=== PATIENT | male | born 1995 | race Caucasian/White ===

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

== ENCOUNTER 2017-07-22 06:13 | Emergency (ER) | payer OTHER ==
[~2017-07-22] VITALS: Ht 175.3 cm; Wt 98.0 kg
[2017-07-22 06:22] VITALS: Ht 175.3 cm; Wt 98.0 kg
[2017-07-22 07:00] LABS: CALCIUM 8.8 mg/dL (8.5-10.1); CARBON DIOXIDE 27.5 mmol/L (21-32); CHLORIDE SERUM 106 mmol/L (98-107); CREATININE SERUM 0.8 mg/dL (0.7-1.3); GFR1 > 60 mL/min; GLUCOSE SERUM 93 mg/dL (74-106); POTASSIUM SERUM 3.7 mmol/L (3.5-5.1); SODIUM SERUM 141 mmol/L (136-145)
[2017-07-22 07:04] LABS: ALBUMIN 4.1 g/dL (3.4-5.0); ALKALINE PHOSPHATASE 81 U/L (46-116); ALT/SGPT 46 U/L (16-63); AST/SGOT 17 U/L (15-37); BILIRUBIN TOTAL 0.7 mg/dL (0.20-1.00); LIPASE 130 IU/L (73-393); TRIGLYCERIDES 51 mg/dL (<150)
[2017-07-22 07:06] LABS: CHOLESTEROL 106 mg/dL (<200); CHOLESTEROL/HDL RATIO 3.3; HDL CHOLESTEROL 32 mg/dL (40-60)
[2017-07-22 07:13] LABS: BASOPHIL % 0.7 % (0-2); PLATELET COUNT 243 x10^3mcL (130-400)
[2017-07-22 07:14] LABS: FREE T4 0.98 ng/dL (0.76-1.46); FREE THYROXINE INDEX 2.4 ug/dL (1.4-4.5); T4(THYROXINE) 6.8 ug/dL (4.7-13.3)
[2017-07-22 07:18] LABS: T3 TOTAL 1.15 ng/mL
[2017-07-22] MEDS ORDERED: ACCUPRIL40 MG (08:13)
[2017-07-22 08:34] VITALS: BP 125/75
[2017-07-22 09:04] LABS: AMPHETAMINE QUAL UR NONE DETECTED (NEG <=1000)
== END 2017-07-22 08:35 | disposition home or self-care (01) ==
LOC: ED 06:13
PROVIDERS: Specialist
DX: F43.0 Acute stress reaction (principal); R06.02 Shortness of breath; R05 Cough
CPT/HCPCS: 83880; 84439; J2060; J7030; Q0092; Q9967

== ENCOUNTER 2017-07-30 21:27 | Emergency (ER) | payer OTHER ==
[~2017-07-30] VITALS: Ht 172.7 cm; Wt 93.9 kg
[~2017-07-30 21:27] MED LIST: ACCUPRIL40 MG
[2017-07-30 21:31] VITALS: BP 131/74; Ht 172.7 cm; Wt 93.9 kg
== END 2017-07-30 23:58 | disposition home or self-care (01) ==
LOC: ED 21:27
DX: J06.9 Acute upper respiratory infection, unspecified (principal)

== ENCOUNTER 2018-03-16 05:10 | Emergency (ER) | payer OTHER ==
[~2018-03-16] VITALS: Ht 175.3 cm; Wt 98.4 kg
[2018-03-16 05:16] VITALS: Ht 175.3 cm; Wt 98.4 kg
[2018-03-16 06:56] LABS: PLATELET COUNT 273 x10^3mcL (130-400)
[2018-03-16 07:11] LABS: CALCIUM 8.8 mg/dL (8.5-10.1); CARBON DIOXIDE 27.5 mmol/L (21-32); CHLORIDE SERUM 105 mmol/L (98-107); CREATININE SERUM 0.9 mg/dL (0.7-1.3); GFR1 > 60 mL/min; GLUCOSE SERUM 95 mg/dL (74-106); POTASSIUM SERUM 3.8 mmol/L (3.5-5.1); SODIUM SERUM 141 mmol/L (136-145)
[2018-03-16 07:15] LABS: ALKALINE PHOSPHATASE 79 U/L (46-116); ALT/SGPT 40 U/L (16-63); AST/SGOT 14 U/L (15-37); BILIRUBIN TOTAL 0.62 mg/dL (0.20-1.00); LIPASE 124 IU/L (73-393); TOTAL PROTEIN, SERUM 7.4 g/dL (6.4-8.2)
[2018-03-16 09:33] VITALS: BP 115/62
== END 2018-03-16 09:33 | disposition home or self-care (01) ==
LOC: ED 05:10
PROVIDERS: Emergency Medicine
DX: R10.13 Epigastric pain (principal); R07.89 Other chest pain; R51 Headache
CPT/HCPCS: 36415; Q0092

== ENCOUNTER 2018-07-29 03:41 | Emergency (ER) | payer OTHER ==
[~2018-07-29] VITALS: Ht 172.7 cm; Wt 62.1 kg
[2018-07-29 03:45] VITALS: Ht 172.7 cm; Wt 62.1 kg
[2018-07-29 04:10] VITALS: BP 130/68
== END 2018-07-29 04:10 | disposition home or self-care (01) ==
LOC: ED 03:41
DX: J20.9 Acute bronchitis, unspecified (principal)

== ENCOUNTER 2018-07-30 05:42 | Emergency (ER) | payer OTHER ==
[~2018-07-30] VITALS: Ht 172.7 cm; Wt 106.6 kg
[2018-07-30 05:46] VITALS: Ht 172.7 cm; Wt 106.6 kg
[2018-07-30 09:29] VITALS: BP 112/89
== END 2018-07-30 09:29 | disposition home or self-care (01) ==
LOC: ED 05:42
DX: J40 Bronchitis, not specified as acute or chronic (principal); M54.9 Dorsalgia, unspecified
CPT/HCPCS: 87804

== ENCOUNTER 2019-03-10 04:48 | Emergency (ER) | payer OTHER ==
[~2019-03-10] VITALS: Ht 172.7 cm; Wt 106.6 kg
[2019-03-10 04:54] VITALS: Ht 172.7 cm; Wt 106.6 kg
[2019-03-10 05:25] VITALS: BP 132/84
== END 2019-03-10 05:25 | disposition home or self-care (01) ==
LOC: ED 04:48
DX: J18.9 Pneumonia, unspecified organism (principal)

== ENCOUNTER 2019-05-14 07:34 | Emergency (ER) | payer OTHER ==
[~2019-05-14] VITALS: Ht 172.7 cm; Wt 107.5 kg
[2019-05-14 07:56] VITALS: Ht 172.7 cm; Wt 107.5 kg
[2019-05-14 09:01] LABS: CALCIUM 8.7 mg/dL (8.5-10.1); CARBON DIOXIDE 27.2 mmol/L (21-32); CHLORIDE SERUM 104 mmol/L (98-107); CREATININE SERUM 0.9 mg/dL (0.7-1.3); GFR1 > 60 mL/min; GLUCOSE SERUM 115 mg/dL (74-106); POTASSIUM SERUM 3.9 mmol/L (3.5-5.1); SODIUM SERUM 140 mmol/L (136-145)
[2019-05-14 09:19] LABS: ALBUMIN 4.1 g/dL (3.4-5.0); ALKALINE PHOSPHATASE 85 U/L (46-116); ALT/SGPT 95 U/L (16-63); AST/SGOT 32 U/L (15-37); BILIRUBIN TOTAL 0.9 mg/dL (0.20-1.00); LIPASE 82 IU/L (73-393); TOTAL PROTEIN, SERUM 7.6 g/dL (6.4-8.2)
[2019-05-14 09:23] LABS: BASOPHIL % 0.2 % (0-2); PLATELET COUNT 269 x10^3mcL (130-400); RED CELL DISTRIBUTION WIDTH 13.1 % (11.5-14.5)
[2019-05-14 10:28] VITALS: BP 120/63
== END 2019-05-14 11:09 | disposition home or self-care (01) ==
LOC: ED 07:34
PROVIDERS: Emergency Medicine
DX: R10.817 Generalized abdominal tenderness (principal); R11.2 Nausea with vomiting, unspecified; R19.7 Diarrhea, unspecified
CPT/HCPCS: J2270; J2405; J7030

== ENCOUNTER 2020-03-10 03:05 | Emergency (ER) | payer OTHER ==
[~2020-03-10] VITALS: Ht 172.7 cm; Wt 109.9 kg
[2020-03-10 03:14] VITALS: Ht 172.7 cm; Wt 109.9 kg
[2020-03-10 04:06] LABS: BASOPHIL % 1.1 % (0.2-1.5); PLATELET COUNT 304 x10^3mcL (152-348); RED CELL DISTRIBUTION WIDTH 12.9 % (12.1-16.2)
[2020-03-10 04:12] LABS: CALCIUM 9.2 mg/dL (8.5-10.1); CARBON DIOXIDE 28.7 mmol/L (21-32); CHLORIDE SERUM 104 mmol/L (98-107); CREATININE SERUM 0.9 mg/dL (0.7-1.3); GFR1 > 60 mL/min; GLUCOSE SERUM 101 mg/dL (74-106); POTASSIUM SERUM 4.2 mmol/L (3.5-5.1); SODIUM SERUM 141 mmol/L (136-145)
[2020-03-10 04:13] LABS: rbc morphology (normal/abnorm) NORMAL (NORMAL)
[2020-03-10 04:17] LABS: ALBUMIN 4.1 g/dL (3.4-5.0); ALKALINE PHOSPHATASE 104 U/L (46-116); ALT/SGPT 89 U/L (16-63); AMYLASE 41 U/L (25-115); AST/SGOT 25 U/L (15-37); BILIRUBIN TOTAL 0.41 mg/dL (0.20-1.00); LIPASE 105 IU/L (73-393); TOTAL PROTEIN, SERUM 7.4 g/dL (6.4-8.2)
[2020-03-10 04:41] VITALS: BP 120/77
== END 2020-03-10 04:41 | disposition home or self-care (01) ==
LOC: ED 03:05
PROVIDERS: Emergency Medicine
DX: R10.13 Epigastric pain (principal)
CPT/HCPCS: J1885